=== PATIENT | male | born 1940 | race Caucasian/White ===

== ENCOUNTER 2017-08-05 13:06 | Inpatient (IN) | payer MEDICARE, BC ==
[~2017-08-05] VITALS: Ht 177.8 cm; Wt 89.7 kg
[~2017-08-05 13:06] MED LIST: ACETAMINOPHEN-1 EAC1; ALDACTONE25 MG PO; AMBEREN; ASPIRIN81 M2 PO; AZOR 5-40 MG T1 EACH PO; BENICAR40 MG; BRILINTA90 MG PO; CALCITRATE200 MG; CALCIUM; CALCIUM AMINO200 MG; CEPACOL SORE T1 EAC2 MM; CHERATUSSIN DA480 ML PO; CLARITIN10 MG PO; CLONIDINE0.1 PO; CO Q-1050 MG PO; CRESTOR20 MG PO; FISH OIL 1,0001 EAC5 PO; FLOMAX PO; FLOMAX0.4 MG PO; HYDROCODON-ACE1 EAC7 PO; HYDROCODON-ACE1 EACH; HYDROCODONE-AP1 EAC6 PO; KEFLEX500 MG PO; LEVAQUIN 500 M500 MG PO; LIPITOR40 MG; LOPRESSOR25; LUTEIN10 MG; MECLIZINE HCL12.5 MG PO; MEDROLDOSEPACK PO; MELOXICAM15 MG PO; METOPROLOL SUCC25 M1 PO; MINIPRIN81 MG PO; MOBIC15 MG; MUCINEX DM TABL1 TA1 PO; MUCINEX TA600 MG/TA2 PO; MUCINEX600 MG; MUCINEX600 MG PO; MULTIVITAMINS1 EAC7 PO; NASAL SPRAY30 M1 NS; NITROSTAT0.4 MG SL; NORCO 5-325 TA1 EACH PO; OMEGA 3-6-9 PO; PERCOCET 5-3251 EACH PO; PLAVIX 75 MG TA75 MG; PREVNAR 13 SYR0.5 ML; PROVENTIL HFA6.7 G1 INH; ROBITUSSIN15 MG/5 ML PO; SALINE NASAL SP30 ML NASAL; SINGULAIR 10 MG10 M1 PO; TAMIFLU45 MG PO; TAMSULOSIN HCL0.4 MG; ZOFRAN ODT4 MG PO; ZOFRAN ODT4 MG SUBLING; ZOFRAN4 MG PO; ZPAK PO; [UNRECOGNIZED DRUG - OTHER] PO
[2017-08-05 13:13] VITALS: BP 129/67
[2017-08-05] MEDS ORDERED: COREG25 MG PO (13:19)
[2017-08-05] MEDS ORDERED: CLONIDINE HCL0.3 M3 PO (13:20)
[2017-08-05] MEDS ORDERED: SENNA S TABLET1 EACH PO (13:21)
[2017-08-05] MEDS ORDERED: OXYCONTIN10 M1 PO (13:21)
[2017-08-05 14:16] LABS: ABSOLUTE EOSINOPHILS 0.1 thou/uL (0.0-0.7); ABSOLUTE LYMPHOCYTES 1.5 thou/uL (0.8-5.3); ABSOLUTE MONOCYTES 1.2 thou/uL (0.0-1.2); ABSOLUTE NEUTROPHILS 3.9 thou/uL (1.6-8.1); BASOPHILS 0.4 %; EOSINOPHILS 1.8 %; HEMATOCRIT 35.8 % (42.0-52.0); HEMOGLOBIN 12.6 gm/dL (14.0-18.0); LYMPHOCYTES 22.6 %; MCH 33.5 pg (26.0-34.0); MCHC 35.3 g/dL (28.0-37.0); MCV 94.8 fL (80.0-100.0); MONOCYTES 17.9 %; MPV 9.3 fl. (7.2-11.1); NUCLEATED RBCS 0 /100WBC; PLATELET COUNT* 141 thou/uL (150-400); POLYS 57.3 %; RBC 3.77 mil/uL (4.50-6.00); RDW-CV 11.8 % (10.5-14.5); WBC 6.8 thou/uL (4.0-11.0)
[2017-08-05 14:21] LABS: BE 3.3 mmol/L (-2 to +3); PCO2 38.1 mmHg (35.0-45.0); PO2 65.7 mmHg (75.0-100.0); pH 7.468 (7.340-7.450)
[2017-08-05 14:24] LABS: APTT 26.6 Seconds (25.0-31.3); INR 1.1; PROTIME 10.7 Seconds (9.20-11.50)
[2017-08-05 14:31] LABS: ANION GAP 9 mmol/L (7-16); BUN 23 mg/dL (7-18); CALCIUM 8.7 mg/dL (8.5-10.1); CHLORIDE 98 mmol/L (98-107); CO2 29 mmol/L (21-32); GLUCOSE 105 mg/dL (70-99); POTASSIUM 4.4 mmol/L (3.5-5.1); SODIUM 136 mmol/L (136-145)
[2017-08-05 14:39] LABS: ALBUMIN 3.4 g/dL (3.4-5.0); ALKALINE PHOSPHATASE 53 U/L (46-116); SGOT 47 U/L (15-37); SGPT 47 U/L (30-65); TOTAL BILIRUBIN 0.7 mg/dL (<0.1-1.0); TOTAL PROTEIN 7.1 g/dL (6.4-8.2); TROPONIN-I LEVEL <0.06 ng/mL (<0.06)
[2017-08-05 14:54] LABS: URINE BILIRUBIN NEGATIVE (Negative); URINE BLOOD TRACE (Negative); URINE CLARITY CLEAR; URINE COLOR YELLOW; URINE GLUCOSE-RANDOM NEGATIVE (Negative); URINE KETONES NEGATIVE (Negative); URINE LEUKOCYTES-REFLEX NEGATIVE (Negative); URINE NITRITE-REFLEX NEGATIVE (Negative); URINE PROTEIN NEGATIVE (Negative); URINE SPECIFIC GRAVITY <= 1.005 (1.005-1.030); URINE UROBILINOGEN 0.2 E.U./dl (0.2-1.0)
[2017-08-05 15:07] LABS: INFLUENZA A ANTIGEN None Detected (None Detect); INFLUENZA B ANTIGEN None Detected (None Detect)
[2017-08-05 16:36] VITALS: BP 152/43
[2017-08-05 17:00] VITALS: BP 110/47
--- NOTE | 2017-08-05 17:27 | EKG ---
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 : 1940 Requested By: Yue Gracia Order Number: [id number] MD: James Phipps Measurements Intervals [place] Rate: 69 P: NV: QRS: 21 QRSD: 80 T: 35 QT: 406 QTc: 435 Interpretive Statements Atrial fibrillation septal q waves noted Baseline wander in lead(s) V5 Compared to ECG 10/06/2016 19:35:04 Sinus rhythm no longer present Electronically Signed On 08-05-2017 17:27:38 [employer]GER [employer] by James Phipps [email or web address] <ELECTRONICALLY SIGNED> By: James Phipps MD, [facility] 08/05/17 1727 1319 1319 James Phipps MD, [facility] /EPI
[2017-08-05 20:49] VITALS: BP 128/64
[2017-08-06] VITALS: BP 110/55
[2017-08-06 04:00] VITALS: BP 116/54
[2017-08-06 09:00] VITALS: BP 104/66
[2017-08-06 12:36] VITALS: BP 99/40
--- NOTE | 2017-08-06 14:21 | 2DMMODE ---
[place] [address] 2 D/M-MODE ECHOCARDIOGRAM Name: PORTIA HENRIQUEZ Room: [address] IN [facility]#: [id number] Admission: 08/05/17 Attend Phys: Sonido Gonzalez Discharge: Date of : 42 Date of Service: 08/06/17 1421 Report #: [id number] THIS REPORT FOR: //name// APPROVED REPORT Study performed: 08/06/2017 10:42:09 EXAM: Comprehensive 2D, Doppler, and color-flow Echocardiogram Patient Location: In-Patient Room #: 200 Status: routine BSA: 2.10 HR: 62 bpm BP: 116/54 mmHg Rhythm: Atrial Fibrillation Other Information Study Quality: Good Indications Atrial Fibrillation 2D Dimensions LVEF(%): 71.01 (>50%) IVSd: 12.31 (7-11mm) LVOT Diam: 21.34 (18-24mm) LVDd: 42.47 mm PWd: 8.62 (7-11mm) Ascending Ao: 33.03 (22-36mm) LVDs: 25.47 (25-40mm) Aortic Root: 32.32 mm Baer's LVEF: 71.01 % Volumes Left Atrial Volume (Systole) LA ESV Index: 22.40 mL/m2 Aortic Valve AoV Peak Trung.: 1.47 m/s AO Peak Gr.: 8.68 mmHg LVOT Max P.67 mmHg AO Mean Gr.: 5.25 mmHg LVOT Mean P.28 mmHg LVOT Max V: 1.08 m/s AO V2 VTI: 28.78 cm LVOT Mean V: 0.69 m/s SERGIO (VTI): 2.81 cm2 LVOT V1 VTI: 22.62 cm Mitral Valve MV Decel. Time: 195.08 [place] [address] 2 D/M-MODE ECHOCARDIOGRAM Name: PORTIA HENRIQUEZ Room: [address] IN [facility]#: [id number] Admission: 08/05/17 Attend Phys: Sonido Gonzalez Discharge: Date of : 42 Date of Service: 08/06/17 1421 Report #: [id number] MV PHT: 56.57 ms MVA (PHT): 3.89 cm2 TDI Medial E' Trung.: 0.19 m/s Lateral E' Trung.: 0.18 m/s Pulmonary Valve PV Peak Trung.: 0.93 m/s PV Peak Gr.: 3.47 mmHg Tricuspid Valve TR Peak Gr.: 22.26 mmHg RVSP: 27.00 mmHg Left Ventricle The left ventricle is normal size. There is normal LV segmental wall motion. There is normal left ventricular wall thickness. Left ventricular systolic function is normal. LVEF is 60-65%. This study is not technically sufficient to allow evaluation of the LV diastolic function due to atrial fibrillation. Right Ventricle The right ventricle is normal size. The right ventricular systolic function is normal. Atria The left atrium size is normal. Right atrium is mildly dilated. Aortic Valve The aortic valve is normal in structure. No aortic regurgitation is present. There is no aortic valvular stenosis. Mitral Valve The mitral valve is normal in structure. Trace mitral regurgitation. No evidence of mitral valve stenosis. Tricuspid Valve The tricuspid valve is normal in structure. Trace tricuspid regurgitation. The RVSP is ____27___ mmHg. Pulmonic Valve The pulmonary valve is normal in structure. Trace pulmonic regurgitation. Great Vessels The aortic root is normal in size. IVC [place] [address] 2 D/M-MODE ECHOCARDIOGRAM Name: PORTIA HENRIQUEZ Room: [address] IN [facility]#: [id number] Admission: 08/05/17 Attend Phys: Sonido Gonzalez Discharge: Date of : 42 Date of Service: 08/06/17 1421 Report #: [id number] collapses with >50% inspiration Pericardium There is no pericardial effusion. <Conclusion> The left ventricle is normal size. There is normal left ventricular wall thickness. Left ventricular systolic function is normal. LVEF is 60-65%. Trace mitral regurgitation. Trace tricuspid regurgitation. The RVSP is ____27___ mmHg. <ELECTRONICALLY SIGNED> By: Yony Weaver MD, FACC 08/06/17 1421 142 142 Yony Weaver MD, FACC /INF
[2017-08-06 15:35] VITALS: BP 91/48
[2017-08-06 19:35] VITALS: BP 131/56
[2017-08-07 00:23] VITALS: BP 125/66
[2017-08-07 04:16] VITALS: BP 127/56
[2017-08-07 05:13] LABS: HEMATOCRIT 36.7 % (42.0-52.0); HEMOGLOBIN 12.9 gm/dL (14.0-18.0); MCH 33.2 pg (26.0-34.0); MCHC 35.1 g/dL (28.0-37.0); MCV 94.7 fL (80.0-100.0); MPV 9.3 fl. (7.2-11.1); RBC 3.88 mil/uL (4.50-6.00); WBC 7.5 thou/uL (4.0-11.0)
[2017-08-07 06:51] LABS: CALCIUM 8.6 mg/dL (8.5-10.1)
[2017-08-07 09:00] VITALS: BP 172/82
--- NOTE | 2017-08-07 11:17 | CON ---
[facility] [address] [place] [address] CONSULTATION Name: PORTIA HENRIQUEZ Room: [address] IN .R.#: [id number] Admission: 08/05/17 Attend Phys: Sonido Castaneda, Discharge: Date of : 42 Report #: [id number] THIS REPORT FOR: //name// CC: Dr. Delmy Castaneda INDICATION: New onset atrial fibrillation. HISTORY OF PRESENT ILLNESS: The patient is a very pleasant 76-year-old gentleman with history of percutaneous coronary intervention in 2005 and 2012. He has preserved left ventricular systolic function. He is not having angina. Last week and on approximately Saturday, he had some back surgery. He was discharged the following day uneventfully. Over the weekend, he complained of sweats and fatigue and shortness of breath as well as some very mild chest pressure. He was brought to the Emergency Room where he was noted to be in atrial fibrillation and admitted to the hospital. Serial enzymes have been unremarkable. CTA of the chest showed no evidence of PE. Doppler studies of the lower extremity showed no evidence of DVT. At the time of my interview, the patient is mildly fatigued, but otherwise without complaint. He is noted to be in atrial fibrillation on telemetry. He is without other complaint at this time. PAST MEDICAL HISTORY: 1. Coronary artery disease. 2. BPH. 3. Hyperlipidemia. 4. Hypertension. 5. Nephrolithiasis. 6. Lumbar radiculopathy, status post surgery. 7. History of migraines. 8. Multiple sclerosis. PAST SURGICAL HISTORY: Coronary stenting as outlined above, trigger finger release in 2006 and 2011. FAMILY HISTORY: Noncontributory. SOCIAL HISTORY: The patient is . He does not smoke. He does not drink alcohol. ALLERGIES: INFLUENZA VACCINE. MEDICATIONS: Amlodipine 5 mg/olmesartan 40 mg 1 tablet daily, aspirin 81 mg b.i.d., carvedilol 25 mg b.i.d., clonidine 0.3 mg p.r.n., Robitussin p.r.n., guaifenesin 600 mg p.r.n., multivitamin 1 tablet daily, Nitrostat p.r.n., fish oil 1000 mg daily, OxyContin 10 mg q.12 hours p.r.n., Crestor 20 mg at bedtime, [place] [address] CONSULTATION Name: PORTIA HENRIQUEZ Room: [address]#: [id number] Admission: 08/05/17 Attend Phys: Sonido Castaneda, Discharge: Date of : 42 Report #: [id number] senna-S tablets 1 tablet b.i.d., Flomax 0.4 mg daily, CoQ10 100 mg daily. REVIEW OF SYSTEMS: A 14-point review of systems as per HPI, otherwise unremarkable. PHYSICAL EXAMINATION VITAL SIGNS: Blood pressure 99/40, pulse 68, irregular. GENERAL: This is a pleasant gentleman who is in no distress. Mood and affect appropriate. HEENT: Extraocular muscles intact. Mucous membranes moist. NECK: Shows no jugular venous distention. There are no carotid bruits. CHEST: Reveals clear lung rico without wheezes, rales or rhonchi. CARDIOVASCULAR: Reveals an irregularly irregular rhythm without gallop or murmur. ABDOMEN: Reveals normal bowel sounds. The abdomen is soft, nontender. EXTREMITIES: Shows no edema. Peripheral pulses palpable. SKIN: Warm and dry. LABORATORY DATA: A 12-lead EKG shows atrial fibrillation without acute ST or T-wave abnormality. Labs are reviewed. Thyroid function studies are normal. Troponins are less than 0.04 on 2 separate occasions. IMPRESSION AND RECOMMENDATIONS: 1. New onset atrial fibrillation. We will plan to obtain echocardiogram. Start amiodarone bolus and drip. We will place on heparin drip at this time and consider long-term anticoagulant after his response to amiodarone. 2. Hypertension. The patient's blood pressure has actually been low recently. I am holding carvedilol at this time, holding John at this time. We will follow clinically and add medications back as needed. 3. Hyperlipidemia. Continue current statin agent. 4. Coronary artery disease, presently stable. He is not having angina. Enzymes are unremarkable. We will follow clinically. <ELECTRONICALLY SIGNED> By: Yony Weaver MD, FACC 08/07/17 1117 1337 [id number] Weaver MD, FACC /nt
[2017-08-07 11:29] VITALS: BP 143/66
[2017-08-07 13:57] VITALS: BP 143/66
[2017-08-07] MEDS ORDERED: NORVASC5 MG PO (16:06)
[2017-08-07] MEDS ORDERED: PACERONE 200 M200 M1 PO (16:47)
[2017-08-07] MEDS ORDERED: XARELTO20 MG PO (16:48)
[2017-08-07 17:00] VITALS: BP 143/66
== END 2017-08-07 17:24 | disposition home or self-care (01) | DRG 291 ==
LOC: M.ERS 13:06 → M.TBA-ER 15:19 → M.2W 15:19
PROVIDERS: Internal Medicine; Personal Emergency Response Attendant; ADMIT Family Medicine
DX: I50.21 Acute systolic (congestive) heart failure (principal); J96.01 Acute respiratory failure with hypoxia; J98.11 Atelectasis; I48.91 Unspecified atrial fibrillation; I25.10 Atherosclerotic heart disease of native coronary artery without angina pectoris; N40.0 Benign prostatic hyperplasia without lower urinary tract symptoms; E78.5 Hyperlipidemia, unspecified; G43.909 Migraine, unspecified, not intractable, without status migrainosus; I95.9 Hypotension, unspecified; I50.9 Heart failure, unspecified; I11.0 Hypertensive heart disease with heart failure; I65.23 Occlusion and stenosis of bilateral carotid arteries; I25.2 Old myocardial infarction; Z87.442 Personal history of urinary calculi; Z85.51 Personal history of malignant neoplasm of bladder; Z85.820 Personal history of malignant melanoma of skin; Z79.899 Other long term (current) drug therapy; Z79.82 Long term (current) use of aspirin; Z88.8 Allergy status to other drugs, medicaments and biological substances; Z98.61 Coronary angioplasty status; Z95.1 Presence of aortocoronary bypass graft; Z87.891 Personal history of nicotine dependence

== ENCOUNTER 2017-12-04 14:35 | Emergency (ER) | payer MEDICARE, BC ==
[~2017-12-04] VITALS: Ht 177.8 cm; Wt 88.5 kg
[~2017-12-04 14:35] MED LIST changes: +CLONIDINE HCL0.3 M3 PO; +COREG25 MG PO; +NORVASC5 MG PO; +OXYCONTIN10 M1 PO; +PACERONE 200 M200 M1 PO; +SENNA S TABLET1 EACH PO; +XARELTO20 MG PO
[2017-12-04] MEDS ORDERED: CARVEDILOL12.5 MG PO (14:53)
[2017-12-04] MEDS ORDERED: ASPIR 8181 MG PO (14:54)
[2017-12-04 14:57] LABS: ABSOLUTE EOSINOPHILS 0.3 thou/uL (0.0-0.7); ABSOLUTE LYMPHOCYTES 1.5 thou/uL (0.8-5.3); ABSOLUTE MONOCYTES 0.7 thou/uL (0.0-1.2); ABSOLUTE NEUTROPHILS 2.9 thou/uL (1.6-8.1); BASOPHILS 0.9 %; EOSINOPHILS 5.9 %; HEMATOCRIT 40.1 % (42.0-52.0); HEMOGLOBIN 13.8 gm/dL (14.0-18.0); LYMPHOCYTES 27.1 %; MCH 32.5 pg (26.0-34.0); MCHC 34.5 g/dL (28.0-37.0); MCV 94.3 fL (80.0-100.0); MONOCYTES 12.6 %; MPV 9.1 fl. (7.2-11.1); NUCLEATED RBCS 0 /100WBC; PLATELET COUNT* 155 thou/uL (150-400); POLYS 53.5 %; RBC 4.26 mil/uL (4.50-6.00); RDW-CV 12.8 % (10.5-14.5); WBC 5.4 thou/uL (4.0-11.0)
[2017-12-04] MEDS ORDERED: CLARITIN10 M2 PO (14:58)
[2017-12-04] MEDS ORDERED: SINGULAIR 10 MG10 M1 PO (14:58)
[2017-12-04] MEDS ORDERED: HYDROCODON-ACE1 EAC7 PO (14:59)
[2017-12-04] MEDS ORDERED: CLONIDINE0.1 PO (14:59)
[2017-12-04] MEDS ORDERED: SALINE NASAL SP30 ML NASAL (14:59)
[2017-12-04 15:16] LABS: APTT 26.4 Seconds (25.0-31.3); INR 1.2; PROTIME 11.3 Seconds (9.20-11.50)
[2017-12-04 15:18] LABS: ANION GAP 10 mmol/L (7-16); BUN 26 mg/dL (7-18); CHLORIDE 105 mmol/L (98-107); CO2 25 mmol/L (21-32); CREATININE 1.2 mg/dL (0.6-1.3); GLUCOSE 120 mg/dL (70-99); POTASSIUM 4.4 mmol/L (3.5-5.1); SODIUM 140 mmol/L (136-145)
[2017-12-04 15:37] LABS: ALBUMIN 3.9 g/dL (3.4-5.0); ALKALINE PHOSPHATASE 78 U/L (46-116); CK-MB MASS 1.4 ng/mL (<0.5-3.6); LIPASE 148 U/L (73-393); MAGNESIUM 1.9 mg/dL (1.8-2.4); NT-PRO BRAIN NAT PEPTIDE 284 pg/mL (<300); SGOT 21 U/L (15-37); SGPT 29 U/L (30-65); TOTAL BILIRUBIN 0.4 mg/dL (<0.1-1.0); TOTAL PROTEIN 7.2 g/dL (6.4-8.2); TROPONIN-I LEVEL <0.06 ng/mL (<0.06)
[2017-12-04 15:54] VITALS: BP 129/52
--- NOTE | 2017-12-06 12:28 | EKG ---
[place] [address] ELECTROCARDIOGRAM REPORT Name: PORTIA HENRIQUEZ Room: 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 : 1940 Requested By: Bob Covington Order Number: [id number] MD: James Phipps Measurements Intervals [place] Rate: 45 P: 69 IA: 214 QRS: 25 QRSD: 100 T: 54 QT: 475 QTc: 411 Interpretive Statements Sinus bradycardia septal q waves RSR' in V1 or V2, probably normal variant Compared to ECG 08/05/2017 13:19:41 Atrial fibrillation no longer present Electronically Signed On 12-06-2017 12:28:21 CDT by James Phipps [email or web address] <ELECTRONICALLY SIGNED> By: James Phipps MD, [facility] 12/06/17 1228 1439 1439 James Phipps MD, [facility] /EPI
== END 2017-12-04 15:55 | disposition home or self-care (01) ==
LOC: M.ERS 14:35
PROVIDERS: Family Medicine
DX: R00.1 Bradycardia, unspecified (principal); I10 Essential (primary) hypertension; Z88.8 Allergy status to other drugs, medicaments and biological substances; Z95.5 Presence of coronary angioplasty implant and graft; Z85.51 Personal history of malignant neoplasm of bladder

== ENCOUNTER → 2017-12-20 | Outpatient (CLI) | payer MEDICARE, BC ==
[~2017-12-20] MED LIST changes: +ASPIR 8181 MG PO; +CARVEDILOL12.5 MG PO; +CLARITIN10 M2 PO
== END ==
LOC: M.RAD 12:37
DX: M79.672 Pain in left foot (principal); I25.10 Atherosclerotic heart disease of native coronary artery without angina pectoris; I48.91 Unspecified atrial fibrillation

== ENCOUNTER → 2018-01-07 | Outpatient (CLI) | payer MEDICARE, BC ==
--- NOTE | 2018-01-07 14:36 | CARDNUC ---
[place] [address] CARDIAC NUCLEAR IMAGING REPORT Name: PORTIA HENRIQUEZ Room: [facility]#: [id number] Admission: 01/07/18 Attend Phys: Yony Weaver, Discharge: Date of : 42 Date of Service: 01/07/18 1436 Report #: [id number] THIS REPORT FOR: //name// APPROVED REPORT Imaging Protocol: Rest Tc-99m/Stress Tc-99m 1 day Study performed: 01/07/2018 08:15:00 Indication: CAD s/p CA, CAD s/p PCI Patient Location: Out-Patient Stress Tech: Corine Miranda Stress Nurse: Deneen Shin RN NM Tech:ALAN Irving Ht: 5 ft 11 in Wt: 196 lbs BSA: 2.09 m2 BMI: 27.33 Medical History Medical History: Atrial Fibrillation, CAD s/p CA, CAD s/p stent, Diabetes, HTN, Hyperlipidemia Medications: amiodarone, chandana, crestor, asa, clonidine Allergies: flue vaccine Cardiac Risk Factors: Age, DM, HTN, Hyperlipidemia Previous Cardiac Procedures: Myocardial infarction, PCI Exercise History: Sedentary Meds Held (24 hrs): - Resting Data Rest SPECT myocardial perfusion imaging was performed in supine position 30 minutes following the intravenous injection of 11.8 mCi of Tc-99m Sestamibi. Time of rest injection: 0845 Date: 01/07/2018 Time of rest imagin The images were gated to evaluate regional wall motion and calculate left ventricular ejection fraction. Administration Route: IV Administration Site: Right Hand Pharmacologic Stress Pharmacologic stress test was performed by injecting Regadenoson 0.4 mg IV push over 10-15 seconds immediately followed by the intravenous injection of 32.9 mCi of Tc-99m Sestamibi. Time of stress injection: 1045 Time of stress imagin Administration Route: [place] [address] CARDIAC NUCLEAR IMAGING REPORT Name: PORTIA HENRIQUEZ [id number] Admission: 01/07/18 Attend Phys: Yony Weaver, Discharge: Date of : 42 Date of Service: 01/07/18 1436 Report #: [id number] Administration Site: Right Hand Gated Stress SPECT was performed 40 minutes after stress injection. The images were gated to evaluate regional wall motion and calculate left ventricular ejection fraction. Prone imaging was performed. Stress Test Details Stress Test: Pharmacologic stress was paired with low level exercise. Reason for pharmacologic stress test: physical limitation. HR Max Heart Rate (APMHR): 144 bpm Resting HR: 52 bpm Target HR (85% APMHR): 122 bpm Max HR Achieved: 86 bpm % of APMHR: 59 Recovery HR: 63 bpm BP Resting BP: 147/61 mmHg Recovery BP: 140/48 mmHg ECG Resting ECG: Sinus Rhythm, normal EKG Stress ECG: Sinus Rhythm, normal EKG ST Change: None Arrhythmia: None Recovery ECG: Sinus Rhythm, normal EKG Recovery ST Change: None Recovery Arrhythmia: None Clinical Reason for Termination: Completed protocol Stress Symptoms: None Exercise duration: 4 min 0 sec Exercise capacity: 2.3 METs The patient tolerated Lexiscan infusion without symptoms. Stress ECG Conclusion The baseline 12-lead EKG show sinus rhythm without significant ST or T wave abnormalities. EKGs obtained during and post Lexiscan infusion show sinus rhythm with no significant ST or T wave changes. There were no stress-induced arrhythmias. Study Quality Study: [place] [address] CARDIAC NUCLEAR IMAGING REPORT Name: PORTIA HENRIQUEZ Room: [facility]#: [id number] Admission: 01/07/18 Attend Phys: Yony Weaver, Discharge: Date of : 42 Date of Service: 01/07/18 1436 Report #: [id number] Artifact: Mild Diaphragmatic artifact Study Data At rest, the left ventricular ejection fraction was 76%.. Post stress, the left ventricular ejection was 76%.. TID = 1.09. Perfusion Myocardial perfusion images obtained at rest and post stress in the supine position show very mild photopenia of the inferior wall that resolves completely with post stress prone imaging. Post stress prone imaging shows uniform uptake of the radioisotope throughout the myocardium without defect. Wall Motion Normal left ventricular wall motion. Nuclear Conclusion ECG Findings: negative for ischemia Clinical Findings: negative for ischemia Nuclear Findings: negative for ischemia Exercise Capacity: not assessed Left Ventricular Function: normal Risk Study: low Myocardial perfusion images show no defect to suggest infarct or ischemia. Left ventricular systolic function appears normal on gated studies. This is a low risk study. <Conclusion> The baseline 12-lead EKG show sinus rhythm without significant ST or T wave abnormalities. EKGs obtained during and post Lexiscan infusion show sinus rhythm with no significant ST or T wave changes. There were no stress-induced arrhythmias. <ELECTRONICALLY SIGNED> By: Yony Weaver MD, FACC 01/07/18 1436 1436 1436 Yony Weaver MD, FACC /INF
== END ==
LOC: M.NUC 12-17 14:49
DX: I25.10 Atherosclerotic heart disease of native coronary artery without angina pectoris (principal); I10 Essential (primary) hypertension; E11.9 Type 2 diabetes mellitus without complications; I48.91 Unspecified atrial fibrillation; E78.5 Hyperlipidemia, unspecified; Z88.7 Allergy status to serum and vaccine

== ENCOUNTER → 2018-06-04 | Outpatient (CLI) | payer MEDICARE, BC ==
[2018-06-04 10:20] LABS: ALBUMIN 3.9 g/dL (3.4-5.0); CALCIUM 8.9 mg/dL (8.5-10.1); CREATININE 1.2 mg/dL (0.6-1.3); POTASSIUM 4.3 mmol/L (3.5-5.1); TOTAL BILIRUBIN 0.5 mg/dL (<0.1-1.0)
== END ==
LOC: M.LAB 09:37
PROVIDERS: Nurse Practitioner
DX: I48.0 Paroxysmal atrial fibrillation (principal)

== ENCOUNTER → 2018-11-26 | Outpatient (CLI) | payer MEDICARE, BC | LOC: M.RAD 10:48 | DX: R05 Cough (principal); Z87.01 Personal history of pneumonia (recurrent); Z87.891 Personal history of nicotine dependence ==

== ENCOUNTER 2019-02-21 21:27 | Inpatient (IN) | payer MEDICARE, BC ==
[~2019-02-21] VITALS: Ht 177.8 cm; Wt 93.4 kg
[2019-02-21 21:33] VITALS: BP 173/65
[2019-02-21] MEDS ORDERED: AMLODIPINE BESY10 MG PO (21:38)
[2019-02-21] MEDS ORDERED: FLOVENT HFA 4444 MCG INH (21:39)
[2019-02-21] MEDS ORDERED: TESSALON PERLE100 MG PO (21:39)
[2019-02-21] MEDS ORDERED: BENICAR20 MG PO (21:39)
[2019-02-21 22:04] LABS: ABSOLUTE EOSINOPHILS 0.1 thou/uL (0.0-0.7); ABSOLUTE LYMPHOCYTES 1.4 thou/uL (0.8-5.3); ABSOLUTE MONOCYTES 1.2 thou/uL (0.0-1.2); ABSOLUTE NEUTROPHILS 7.6 thou/uL (1.6-8.1); BASOPHILS 0.3 %; EOSINOPHILS 0.7 %; HEMATOCRIT 40.3 % (42.0-52.0); HEMOGLOBIN 13.8 gm/dL (14.0-18.0); LYMPHOCYTES 13.6 %; MCH 32.6 pg (26.0-34.0); MCHC 34.2 g/dL (28.0-37.0); MCV 95.2 fL (80.0-100.0); MONOCYTES 11.3 %; MPV 8.8 fl. (7.2-11.1); NUCLEATED RBCS 0 /100WBC; PLATELET COUNT* 162 thou/uL (150-400); POLYS 74.1 %; RBC 4.23 mil/uL (4.50-6.00); RDW-CV 12.9 % (10.5-14.5); WBC 10.2 thou/uL (4.0-11.0)
[2019-02-21 22:14] LABS: ANION GAP 10 mmol/L (7-16); BUN 21 mg/dL (7-18); CHLORIDE 102 mmol/L (98-107); CO2 26 mmol/L (21-32); CREATININE 1.1 mg/dL (0.6-1.3); GLUCOSE 123 mg/dL (70-99); POTASSIUM 3.9 mmol/L (3.5-5.1); SODIUM 138 mmol/L (136-145)
[2019-02-21 22:16] LABS: PROTIME 10.7 Seconds (9.20-11.50)
[2019-02-21 22:26] LABS: ALBUMIN 4.3 g/dL (3.4-5.0); ALKALINE PHOSPHATASE 84 U/L (46-116); SGOT 20 U/L (15-37); SGPT 28 U/L (30-65); TOTAL BILIRUBIN 0.5 mg/dL (<0.1-1.0); TOTAL PROTEIN 7.7 g/dL (6.4-8.2)
[2019-02-21 22:30] LABS: BE 0.4 mmol/L (-2 to +3); PCO2 33.1 mmHg (35.0-45.0); PO2 62.5 mmHg (75.0-100.0); pH 7.468 (7.340-7.450)
[2019-02-21 22:36] LABS: URINE BILIRUBIN NEGATIVE (Negative); URINE BLOOD NEGATIVE (Negative); URINE CLARITY CLEAR; URINE COLOR YELLOW; URINE GLUCOSE-RANDOM NEGATIVE (Negative); URINE KETONES NEGATIVE (Negative); URINE LEUKOCYTES-REFLEX NEGATIVE (Negative); URINE NITRITE-REFLEX NEGATIVE (Negative); URINE PROTEIN NEGATIVE (Negative); URINE SPECIFIC GRAVITY 1.015 (1.005-1.030); URINE UROBILINOGEN 0.2 E.U./dl (0.2-1.0)
[2019-02-21 22:40] LABS: TROPONIN-I LEVEL <0.06 ng/mL (<0.06)
[2019-02-21 23:54] VITALS: BP 145/53
[2019-02-22 04:23] VITALS: BP 129/53
[2019-02-22 07:45] VITALS: BP 112/42
[2019-02-22 11:52] VITALS: BP 115/46
[2019-02-22 15:33] VITALS: BP 129/52
[2019-02-22 20:00] VITALS: BP 117/48
--- NOTE | 2019-02-22 20:22 | NUR ---
ASSUMED PT CARE AT 0730, FULL ASSESMENT DONE CHARTED. PT A/O X4, [place], DENIES PAIN, AT TIMES A PRODUCTIVE COUGH, SPUTUME SENT TO LAB. PT UP AD ADRIANNA, BP SOFT THIS AM, MONITORED CLOSELY. DISCUSSED MEDS WITH PT AND HIS . UPDATED ON PLAN OF CARE. REPORT GIVEN TO NORA MUÑOZ.
[2019-02-23 00:06] VITALS: BP 121/49
[2019-02-23 04:00] VITALS: BP 117/43
[2019-02-23 05:03] LABS: HEMATOCRIT 35.2 % (42.0-52.0); MCH 32.5 pg (26.0-34.0); MCHC 33.5 g/dL (28.0-37.0); MCV 97.2 fL (80.0-100.0); RBC 3.62 mil/uL (4.50-6.00); WBC 12.9 thou/uL (4.0-11.0)
[2019-02-23 05:11] LABS: HEMOGLOBIN 11.8 gm/dL (14.0-18.0)
[2019-02-23 05:13] LABS: CALCIUM 8.5 mg/dL (8.5-10.1); CREATININE 1.4 mg/dL (0.6-1.3); POTASSIUM 3.7 mmol/L (3.5-5.1)
--- NOTE | 2019-02-23 06:42 | NUR ---
ASSUMED CARE OF PT AFTER REPORT AT 1930. PT A&OX4. VSS. PHYSICAL ASSESSMENT COMPLETED AND CHARTED. PT ON O2 AT 2L NC. PT TRACING SR ON TELE. PT UPADLIB TO RESTROOM.PT DENIES ANY ANY PAIN OR DISCOMFORT. URINE SPECIMEN SENT TO LAB. PT ABLE TO SLEEP WELL ON BED. CALL LIGHT WITHIN REACH.
[2019-02-23 08:00] VITALS: BP 110/40
[2019-02-23 11:30] VITALS: BP 110/43
--- NOTE | 2019-02-23 11:55 | EKG ---
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: : 1940 Requested By: Yue Gracia Order Number: [id number] MD: Brian Cervantes Measurements Intervals [place] Rate: 68 P: 72 MT: 194 QRS: 35 QRSD: 95 T: 61 QT: 382 QTc: 407 Interpretive Statements Sinus rhythm Borderline low voltage, extremity leads Compared to ECG 12/04/2017 14:39:17 Sinus bradycardia no longer present Q waves no longer present Electronically Signed On 02-23-2019 11:55:13 CDT by Brian Cervantes [email or web address] <ELECTRONICALLY SIGNED> By: Brian Cervantes MD, [facility] 02/23/19 1155 2137 2137 Brian Cervantes MD, [facility] /EPI
--- NOTE | 2019-02-23 13:53 | NUR ---
SW met with pt to complete initial assessment, introduce self, and SW role. Pt alert, oriented, pleasant. Pt lives at home with ; pt has been independent with ADLs and mobility. Pt has CPAP. Pt has a cane but has not needed to use it. Pt does not anticipate any dc needs at this time. SW to continue to follow to assist with safe dc planning.
[2019-02-23 16:16] VITALS: BP 115/43
--- NOTE | 2019-02-23 17:05 | NUR ---
ASSUMED PT CARE REPORT RECEIVED FROM NURSE. PT IS AOX4, PLEASANT. ON O2 2 L NC. LUNG SOUND CLEAR EXCEPT FOR COARSE SOUND IN RIGHT LOWER QUADRANT. SR ON STRUCTURAL STEEL EQUIPMENT ERECTOR. UP AD ADRIANNA. IV FLUID INFUSING. IV ABX GIVEN. PT EXPRESSES NO COMPLAINT. CALL LIGHT AT REACH. WILL CONTINUE TO MONITOR PT.
[2019-02-23 20:00] VITALS: BP 121/58
[2019-02-23 21:06] LABS: MYCOPLASMA PNEUMONIA IgM <770 U/mL (0-769)
[2019-02-23 22:07] LABS: MYCOPLASMA PNEUMONIA IgG 1150 U/mL (0-99)
[2019-02-24 00:05] VITALS: BP 118/42
[2019-02-24 04:00] VITALS: BP 136/50
--- NOTE | 2019-02-24 04:53 | NUR ---
ASSUMED CARE OF PT AFTER REPORT AT 1930. PT A&OX4. VSS. PHYSICAL ASSESSMENT COMPLETED AND CHARTED. PT ON O2 AT 2L NC/CPAP WHEN SLEEPING. PT TRACING SR ON TELE. PT UP ADLIB TO RESTROOM. PT COMPLAINED OF HEARTBURN-MEDS GIVEN PER MAR. PT ABLE TO SLEEP WELL ON BED. CALL LIGHT WITHIN REACH.
[2019-02-24 05:17] LABS: HEMATOCRIT 34.1 % (42.0-52.0); HEMOGLOBIN 11.8 gm/dL (14.0-18.0); MCH 33.6 pg (26.0-34.0); MCHC 34.6 g/dL (28.0-37.0); MCV 97.1 fL (80.0-100.0); MPV 9.2 fl. (7.2-11.1); NUCLEATED RBCS 0 /100WBC; PLATELET COUNT* 145 thou/uL (150-400); RBC 3.51 mil/uL (4.50-6.00); RDW-CV 12.9 % (10.5-14.5); WBC 15.3 thou/uL (4.0-11.0)
[2019-02-24 05:26] LABS: CREATININE 1.2 mg/dL (0.6-1.3); MAGNESIUM 2.3 mg/dL (1.8-2.4); POTASSIUM 4.6 mmol/L (3.5-5.1)
[2019-02-24 07:39] LABS: ABSOLUTE EOSINOPHILS 0.2 thou/uL (0.0-0.7); ABSOLUTE LYMPHOCYTES 0.2 thou/uL (0.8-5.3); ABSOLUTE MONOCYTES 1.5 thou/uL (0.0-1.2); ABSOLUTE NEUTROPHILS 13.5 thou/uL (1.6-8.1); PLATELET ESTIMATE ADEQUATE
[2019-02-24 08:13] VITALS: BP 120/52
[2019-02-24] MEDS ORDERED: VENTOLIN HFA 1818 GM INH (09:43)
[2019-02-24] MEDS ORDERED: CEFDINIR300 MG PO (09:43)
[2019-02-24] MEDS ORDERED: AZITHROMYCIN 2250 MG PO (09:43)
[2019-02-24] MEDS ORDERED: PREDNISONE 10 M10 MG PO (09:43)
[2019-02-24] MEDS ORDERED: MUCINEX600 MG PO (09:43)
--- NOTE | 2019-02-24 13:04 | NUR ---
THIS RN INSTRUCTOR AGREES WITH THE ASSESSMENT OF SN JAMAL FOR 02/24/19 AT 1047.
[2019-02-24 14:16] VITALS: BP 120/52
== END 2019-02-24 15:26 | disposition home or self-care (01) | DRG 682 ==
LOC: M.ERS 21:27 → M.TBA-ER 22:54 → M.2W 22:54
PROVIDERS: Personal Emergency Response Attendant; ADMIT Internal Medicine
DX: N17.9 Acute kidney failure, unspecified (principal); J96.01 Acute respiratory failure with hypoxia; J20.8 Acute bronchitis due to other specified organisms; I10 Essential (primary) hypertension; I25.10 Atherosclerotic heart disease of native coronary artery without angina pectoris; I73.9 Peripheral vascular disease, unspecified; G47.33 Obstructive sleep apnea (adult) (pediatric); Z95.5 Presence of coronary angioplasty implant and graft; I25.2 Old myocardial infarction; Z85.820 Personal history of malignant melanoma of skin; Z85.51 Personal history of malignant neoplasm of bladder; Z88.7 Allergy status to serum and vaccine

== ENCOUNTER → 2019-08-28 | Outpatient (CLI) | payer MEDICARE, BC ==
[~2019-08-28] MED LIST changes: +AMLODIPINE BESY10 MG PO; +AZITHROMYCIN 2250 MG PO; +BENICAR20 MG PO; +CEFDINIR300 MG PO; +FLOVENT HFA 4444 MCG INH; +PREDNISONE 10 M10 MG PO; +TESSALON PERLE100 MG PO; +VENTOLIN HFA 1818 GM INH
== END ==
LOC: M.RAD 13:59
DX: R05 Cough (principal)

== ENCOUNTER 2019-10-20 22:08 | Inpatient (IN) | payer MEDICARE, BC ==
[~2019-10-20] VITALS: Ht 180.3 cm; Wt 88.9 kg
[2019-10-20 22:14] VITALS: BP 113/60
--- NOTE | 2019-10-20 22:23 | NUR ---
PATIENT CODE IN PROGRESS SEE CODE BLUE SHEET.
[2019-10-20 22:40] LABS: ABSOLUTE EOSINOPHILS 0.1 thou/uL (0.0-0.7); ABSOLUTE LYMPHOCYTES 2.4 thou/uL (0.8-5.3); ABSOLUTE NEUTROPHILS 2.8 thou/uL (1.6-8.1); BASOPHILS 0.6 %; HEMATOCRIT 39.3 % (42.0-52.0); HEMOGLOBIN 13.8 gm/dL (14.0-18.0); LYMPHOCYTES 37.6 %; MCH 32.9 pg (26.0-34.0); MCHC 35.2 g/dL (28.0-37.0); MCV 93.4 fL (80.0-100.0); MPV 9.2 fl. (7.2-11.1); NUCLEATED RBCS 0 /100WBC; PLATELET COUNT* 180 thou/uL (150-400); POLYS 43.8 %; WBC 6.3 thou/uL (4.0-11.0)
[2019-10-20 22:50] LABS: ANION GAP 9 mmol/L (7-16); BUN 18 mg/dL (7-18); CALCIUM 8.5 mg/dL (8.5-10.1); CHLORIDE 106 mmol/L (98-107); CO2 27 mmol/L (21-32); CREATININE 1.3 mg/dL (0.6-1.3); GLUCOSE 148 mg/dL (70-99); POTASSIUM 3.5 mmol/L (3.5-5.1); SODIUM 142 mmol/L (136-145)
[2019-10-20 22:52] LABS: APTT 24.2 Seconds (25.0-31.3); INR 1.1; PROTIME 11.1 Seconds (9.20-11.50)
[2019-10-20 22:54] LABS: ALKALINE PHOSPHATASE 81 U/L (46-116); CHOLESTEROL 132 mg/dL (<200); HDL CHOLESTEROL 49 mg/dL (>40); LDL CHOLESTEROL 66 mg/dL (<100); SERUM ASSESSMENT Clear; SGOT 21 U/L (15-37); SGPT 29 U/L (30-65); TC:HDL 2.7 Ratio (Not establshd); TOTAL BILIRUBIN 0.3 mg/dL (<0.1-1.0); TOTAL PROTEIN 7.1 g/dL (6.4-8.2); TRIGLYCERIDE 88 mg/dL (<150); VLDL 18 mg/dL (<40)
[2019-10-20 23:00] VITALS: BP 76/46
--- NOTE | 2019-10-20 23:00 | NUR ---
SEE STEMI DOCUMENTATION FORM
--- NOTE | 2019-10-20 23:00 | NUR ---
PATIENT TRANSFERRED TO CATHLAB
[2019-10-20 23:21] LABS: BE -9.5 mmol/L (-2 to +3); PCO2 38.7 mmHg (35.0-45.0)
[2019-10-20] MEDS ORDERED: ELIQUIS5 MG PO (23:26)
[2019-10-21] VITALS (62 sets, daily range): BP systolic 74–172; BP diastolic 39–74
[2019-10-21 00:12] LABS: BE -11.5 mmol/L (-2 to +3); PCO2 38.3 mmHg (35.0-45.0)
[2019-10-21 00:14] LABS: pH 7.222 (7.340-7.450)
[2019-10-21 00:19] LABS: pH 7.258 (7.340-7.450)
[2019-10-21 00:20] LABS: PO2 57.5 mmHg (75.0-100.0)
[2019-10-21 05:01] LABS: BE -4.5 mmol/L (-2 to +3); PCO2 43.7 mmHg (35.0-45.0); PO2 72.2 mmHg (75.0-100.0); pH 7.312 (7.340-7.450)
[2019-10-21 07:16] LABS: ABSOLUTE LYMPHOCYTES 0.9 thou/uL (0.8-5.3); ABSOLUTE MONOCYTES 2.1 thou/uL (0.0-1.2); ABSOLUTE NEUTROPHILS 10.7 thou/uL (1.6-8.1); BASOPHILS 0.1 %; HEMATOCRIT 39.2 % (42.0-52.0); HEMOGLOBIN 13.6 gm/dL (14.0-18.0); LYMPHOCYTES 6.8 %; MCH 32.2 pg (26.0-34.0); MCHC 34.7 g/dL (28.0-37.0); MCV 92.7 fL (80.0-100.0); NUCLEATED RBCS 0 /100WBC; PLATELET COUNT* 193 thou/uL (150-400); POLYS 78.1 %; RBC 4.23 mil/uL (4.50-6.00); RDW-CV 12.7 % (10.5-14.5); WBC 13.7 thou/uL (4.0-11.0)
[2019-10-21 07:19] LABS: CALCIUM 7.8 mg/dL (8.5-10.1); CREATININE 1.3 mg/dL (0.6-1.3); POTASSIUM 3.9 mmol/L (3.5-5.1)
[2019-10-21 07:23] LABS: INR 1.3; PROTIME 12.8 Seconds (9.20-11.50)
[2019-10-21 07:35] LABS: APTT 42.6 Seconds (25.0-31.3)
--- NOTE | 2019-10-21 08:32 | EKG ---
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 <ELECTRONICALLY SIGNED> By: Yony Weaver MD, [facility] 10/21/19 0830 14 14 Yony Weaver MD, [facility] /EPI
--- NOTE | 2019-10-21 09:51 | CARD ---
[address] [address] CARDIAC CATH REPORT Name: PORTIA HENRIQUEZ Room: [address] IN [facility]#: [id number] Admission: 10/21/19 Attend Phys: Spike Roper MD Discharge: Date of : 42 Report #: [id number] THIS REPORT FOR: //name// cc: Rubi Brock MD, Katrina MD ~ APPROVED REPORT Study performed: 10/20/2019 22:45:56 Patient Details Patient Status: ED Room #: The patient is a 79 year-old male Event Personnel Brian Cervantes Records Associate, Maryjane Knight RN RN, Rex Rondon RN RN, Francisco Charles Kramer, Jessie RTR Monitor Procedures Performed Art Access - R femoral artery* Left Heart Cath w/or w/o Coronaries [id number] [facility] KATE Revasc AMI Total/Sub Single CIRC [id number] AMIREVSING Indication STEMI Risk Factors Hypercholesterolemia, Hypertension Previous Procedures/Diagnoses Previous PCI Admission/Lab Medications/Medications given during procedure Angiomax bolus and infusion; 150 mg bolus of IV amiodarone; variable dose infusions of Levophed and dopamine Procedure Narrative The patient was brought emergently to the Cardiac Catheterization Laboratory and was prepped and draped in a sterile manner. The right femoral was infiltrated with 2% Lidocaine subcutaneous anesthesia. A [place] 6 FR sheath was inserted into the right femoral artery. Coronary angiography was performed using coronary diagnostic catheters. The right coronary system was accessed and visualized with a Diagnostic 6 Fr JR 4 catheter. The left coronary system was accessed and visualized with a Diagnostic 6 Fr JL 4 catheter. The left ventricle was accessed and visualized with a Diagnostic 6 [place] [address] CARDIAC CATH REPORT Name: PORTIA HENRIQUEZ Room: [address]#: [id number] Admission: 10/21/19 Attend Phys: Spike Roper MD Discharge: Date of : 42 Report #: [id number] Pigtail catheter. Left ventricular/Aortic Valve gradient assessed via catheter pullback. Hemostasis was obtained with manual pressure following sheath removal without any complications. The patient tolerated the procedure well and there were no complications associated with the procedure. There was no hematoma. Intraoperative Conscious Sedation Sedation start time: 23:50 Case end Time: 12:02 Versed 6 mg Fluoro Time: 11.8 minutes Dose: DAP 23531 cGycm2 1269 mGy Contrast Type and Amount: Visipaque 150 ml Diagnostic Cath Left Main 0% narrowing LAD 30% proximal and 40% mid vessel narrowing Circumflex 100% proximal occlusion with prominent intraluminal thrombus Right Coronary 30% mid vessel narrowing with multiple widely patent stents in this dominant vessel Hemodynamics The aortic pressure is 110/43 mmHg with a mean of 61 mmHg. The left ventricular pressure is 123/10 mmHg with a mean of mmHg. The left ventricular end diastolic pressure is 25 mmHg. There was no gradient across the aortic valve upon pullback. PCI Technique Lesion Anticoagulation was achieved with Angiomax Drip. Patient was preloaded with Angiomax IV 16 ml. Percutaneous coronary intervention was performed on the proximal circumflex artery segment. The lesion stenosis prior to intervention was 100% with GREG 0 flow. A 6FR XB 3.0 100CM Guide Catheter was used to engage the left ostium. A IG: BMW 190cm Interventional Guidewire was used to cross the lesion. BALLOON DILATION A Balloon catheter Trek RX 2.5 X 12 was inserted and inflated up to 12.00atm for 13seconds. Additional Inflation: 16.00atm for 10seconds. STENT DEPLOYMENT A drug-eluting stent Hopkins RX Stent 3.0X12mm was inserted and inflated up to 10.00atm for 12seconds. Additional Inflation: 12.00atm [place] [address] CARDIAC CATH REPORT Name: PORTIA HENRIQUEZ Room: [address] IN [facility]#: [id number] Admission: 10/21/19 Attend Phys: Spike Roper MD Discharge: Date of : 42 Report #: [id number] for 9seconds. Additional Inflation: 15.00atm for 10seconds. Final angiography reveals 0 % stenosis with GREG 3 flow. Conclusion 1. Acute inferoposterolateral ST segment elevation myocardial infarction 2. Significant coronary artery disease characterized by the following: A 100% proximal circumflex occlusion with prominent intraluminal thrombus B 30% proximal and 40% mid LAD narrowing C 30% mid right coronary narrowing with multiple widely patent stents 2. Significant elevation of left ventricular end-diastolic pressure at rest 3. Bolus of IV amiodarone in the context of recurrent slow ventricular tachycardia 4. Infusions of dopamine and levophed at variable dosages to achieve satisfactory systemic pressures 5. Successful PCI with deployment of a drug-eluting stent at the site of 100% proximal circumflex occlusion with 0% residual narrowing and GREG-3 flow to the distal vessel Recommendations Cardiac Risk Reduction Program Aggressive Medical Therapy Medications Administered Aspirin (any) Prasugrel <ELECTRONICALLY SIGNED> By: Brian Cervantes MD, [facility] 10/21/19 0949 0949 0949Brian Cervantes MD, FACC /INF
--- NOTE | 2019-10-21 10:16 | NUR ---
Nutrition: Pt admitted with STEMI, stent placed. Seen for Eladio score 10. Pt is NPO, intubated. Per RN, titrating sedation and trialing a wean today. Wt: 198#. H/o DM, HTN. BG 200s, albumin 4. Will await POC and assess for possible need for TF if he remains intubated, 10/23/19.
--- NOTE | 2019-10-21 10:23 | NUR ---
SW completed initial assessment and spoke with pt nurse Kelly for ICU interdisciplinary rounds. Pt lives at home with . SW attempted to contact pt with no answer and no personalized voicemail box. Pt has CPAP, cane. Intubated, sedated, nelson, trying PICC, restraints for tube to remain in place. SW to continue to follow to assist with safe dc planning.
--- NOTE | 2019-10-21 10:33 | EKG ---
[place] [address] ELECTROCARDIOGRAM REPORT Name: PORTIA HENRIQUEZ Room: [address] ADM IN M.R.#: [id number] Admission: 10/21/19 Attend Phys: Spike Roper, Discharge: Date of : 42 Date of Service: 10/20/192231 Report #: [id number] THIS REPORT FOR: //name// [facility] ED Test Date: 2019-10-20 Test Time: 22:32:39 Pat Name: PORTIA HENRIQUEZ Department: Room: [address] Gender: M Business Relationship Manager: Anahi : 1940 Requested By: Yue Gracia Order Number: [id number] Carmen MD: James Phipps Measurements Intervals [place] Rate: 89 P: [place]: QRS: 93 QRSD: 113 T: 29 QT: 326 QTc: 397 Interpretive Statements Paired ventricular premature complexes inferior infarct, acute (LCx) Lateral infarct, acute ST elevation, consider inferior injury ST depression V1-V3, suggest recording posterior leads Baseline wander in lead(s) III,aVL Compared to ECG 10/20/2019 22:15:42 Ventricular premature complex(es) now present Myocardial infarct finding still present ST (T wave) deviation still present Electronically Signed On 10-21-2019 10:31:55 CDT by James Phipps [email or web address] <ELECTRONICALLY SIGNED> By: James Phipps MD, [facility] 10/21/19 1031 31 31 James Phipps MD, [facility] /EPI
--- NOTE | 2019-10-21 10:35 | EKG ---
[place] [address] ELECTROCARDIOGRAM REPORT Name: PORTIA HENRIQUEZ Room: [address] ADM IN M.R.#: [id number] Admission: 10/21/19 Attend Phys: Spike Roper, Discharge: Date of : 42 Date of Service: 10/21/1912 Report #: [id number] THIS REPORT FOR: //name// [facility] Test Date: 2019-10-21 Test Time: 08:12:45 Pat Name: PORTIA HENRIQUEZ Department: Room: [address] Gender: M Infectious Waste Technician: : 1940 Requested By: James Phipps Order Number: [id number] Reading MD: James Phipps Measurements Intervals [place] Rate: 70 P: 79 W[place]: 217 QRS: 48 QRSD: 95 T: 79 QT: 333 QTc: 360 Interpretive Statements Sinus rhythm Low voltage, extremity and precordial leads Compared to ECG 10/20/2019 22:15:42 PVC's no longer seen Myocardial infarct finding no longer present ST (T wave) deviation no longer present Electronically Signed On 10-21-2019 10:33:34 CDT by James Phipps [email or web address] <ELECTRONICALLY SIGNED> By: James Phipps MD, [facility] 10/21/19 1033 1 1 James Phipps MD, [facility] /EPI
[2019-10-21 12:50] LABS: BE -2.1 mmol/L (-2 to +3); PCO2 38.7 mmHg (35.0-45.0); PO2 69.4 mmHg (75.0-100.0); pH 7.384 (7.340-7.450)
--- NOTE | 2019-10-21 12:59 | 2DMMODE ---
[place] [address] 2 D/M-MODE ECHOCARDIOGRAM Name: PORTIA HENRIQUEZ Room: [address] IN [facility]#: [id number] Admission: 10/21/19 Attend Phys: Spike Roper, Discharge: Date of : 42 Date of Service: 10/21/19 1257 Report #: [id number] THIS REPORT FOR: cc: Rubi Brock MD, Katrina MD Blick, David R. MD [facility] ~ APPROVED REPORT Study performed: 10/21/2019 09:50:58 EXAM: Comprehensive 2D, Doppler, and color-flow Echocardiogram Patient Location: In-Patient Room #: 004 Status: routine BSA: 2.10 HR: 69 bpm BP: 105/50 mmHg Rhythm: NSR Other Information Study Quality: Good Indications Acute DE 2D Dimensions IVSd: 10.08 (7-11mm) LVOT Diam: 21.09 (18-24mm) LVDd: 45.19 mm PWd: 8.16 (7-11mm) Ascending Ao: 31.95 (22-36mm) LVDs: 34.46 (25-40mm) Aortic Root: 31.57 mm Volumes Left Atrial Volume (Systole) LA ESV Index: 23.60 mL/m2 Aortic Valve AoV Peak Trung.: 1.31 m/s AO Peak Gr.: 6.88 mmHg LVOT Max P.51 mmHg AO Mean Gr.: 4.07 mmHg LVOT Mean P.75 mmHg LVOT Max V: 0.94 m/s AO V2 VTI: 21.72 cm LVOT Mean V: 0.61 m/s SERGIO (VTI): 2.52 cm2 LVOT V1 VTI: 15.67 [place] [address] 2 D/M-MODE ECHOCARDIOGRAM Name: PORTIA HENRIQUEZ Room: [address] IN ..#: [id number] Admission: 10/21/19 Attend Phys: Spike Roper, Discharge: Date of : 42 Date of Service: 10/21/19 1257 Report #: [id number] Mitral Valve E/A Ratio: 1.08 MV Decel. Time: 192.51 ms MV E Max Trung.: 0.85 m/s MV PHT: 55.83 ms MVA (PHT): 3.94 cm2 TDI E/Lateral E': 7.08 E/Medial E': 8.50 Medial E' Trung.: 0.10 m/s Lateral E' Trung.: 0.12 m/s Pulmonary Valve PV Peak Trung.: 0.94 m/s PV Peak Gr.: 3.57 mmHg Left Ventricle The left ventricle is normal size. There is normal LV segmental wall motion. There is normal left ventricular wall thickness. Left ventricular systolic function is borderline.. LVEF is 50-55%. The left ventricular diastolic function is normal. Right Ventricle The right ventricle is normal size. The right ventricular systolic function is normal. Atria The left atrium size is normal. The right atrium size is normal. Aortic Valve The aortic valve is normal in structure. No aortic regurgitation is present. There is no aortic valvular stenosis. Mitral Valve The mitral valve is normal in structure. Mild mitral regurgitation. No evidence of mitral valve stenosis. Tricuspid Valve The tricuspid valve is normal in structure. Trace tricuspid regurgitation. Pulmonic Valve Pulmonic valve is not well visualized. There is no pulmonic valvular regurgitation[place] [address] 2 D/M-MODE ECHOCARDIOGRAM Name: PORTIA HENRIQUEZ Room: [address]#: [id number] Admission: 10/21/19 Attend Phys: Spike Roper, Discharge: Date of : 42 Date of Service: 10/21/19 1257 Report #: [id number] The aortic root is normal in size. IVC is normal in size and collapses >50% with inspiration. Pericardium There is no pericardial effusion. <Conclusion> LVEF is 50-55%. Mild mitral regurgitation. <ELECTRONICALLY SIGNED> By: James Phipps MD, FACC 10/21/19 1257 1257 1257 James Phipps MD, [facility] /INF
--- NOTE | 2019-10-21 13:59 | NUR ---
RIGHT CEPHALIC VESSEL ACCESSED FOR 5 HONDURAN TRIPLE LUMEN PICC. LINE PRE-TRIMMED TO 41 CM AND ADVANCED TO THE ZERO ANABELA WITH NO RESISTANCE MET. UPPER ARM CIRCUMFERENCE ABOVE INSERTION SITE= 14", MEDICAL NECESSITY DETERMINED BY DR. CISNEROS. SHERLOCK MAGNET AND 3CG CONFIRMATION OF TIP TERMINATIONAT THE CAVOATRIAL JUNCTION APPRECIATED. GUIDEWIRE REMOVED, LINE FLUSHED AND INSERTION SITE DRESSED. REPORT GIVEN TO CLEM MUÑOZ.
--- NOTE | 2019-10-21 17:08 | NUR ---
pt progressed toward goals during shift able to obey commands opens eyes spont squeeze hands move feet titrated levo off tolerating well pressures still soft dopamine still infusing per dr rascon leave on until tomorrow titrate down from 10mcg to 5 mcg leave art and sheath in place until tomorrow spoke with family throughout day with updates along with dr kraft plan for weaning trial and extubation in the am
--- NOTE | 2019-10-21 21:44 | NUR ---
PLAN TO EXTUBATE PT. AT THIS TIME. AWAITING FOR DR. VILLEDA TO ARRIVE. PT. ALERT, ABLE TO FOLLOW COMMANDS, NODDED HEAD YES IN UNDERSTANDING. AMBU BAG READY AND IN ROOM, RT AT BEDSIDE.
[2019-10-21 22:24] LABS: BE 1.1 mmol/L (-2 to +3); PCO2 36.7 mmHg (35.0-45.0); PO2 64.2 mmHg (75.0-100.0); pH 7.448 (7.340-7.450)
--- NOTE | 2019-10-21 23:41 | NUR ---
PT. NOT EXTUBATED AT THIS TIME DUE TO O2 DESAT, DR. VILLEDA STATED SHE WILL ATTEMPT AGAIN IN THE A.M. AROUND 0600. REMAINS ON PRESSURE SUPPORT, 50% FIO2. RESTRAINTS REMAIN IN PLACE, VERSED/FENTANYL GTT'S RESTARTED FOR SEDATION. LASIX 20MG ORDERED X1 PER DR. VILLEDA. WILL CONTINUE TO MONITOR.
[2019-10-22] VITALS (36 sets, daily range): BP systolic 69–140; BP diastolic 33–63
[2019-10-22 05:04] LABS: CREATININE 1.2 mg/dL (0.6-1.3); POTASSIUM 3.8 mmol/L (3.5-5.1)
[2019-10-22 05:05] LABS: ABSOLUTE LYMPHOCYTES 1.3 thou/uL (0.8-5.3); ABSOLUTE MONOCYTES 1.5 thou/uL (0.0-1.2); ABSOLUTE NEUTROPHILS 8.4 thou/uL (1.6-8.1); BASOPHILS 0.2 %; HEMATOCRIT 35.4 % (42.0-52.0); HEMOGLOBIN 12.5 gm/dL (14.0-18.0); LYMPHOCYTES 11.2 %; MCH 32.8 pg (26.0-34.0); MCHC 35.2 g/dL (28.0-37.0); MCV 93.1 fL (80.0-100.0); MONOCYTES 13.6 %; MPV 9.2 fl. (7.2-11.1); NUCLEATED RBCS 0 /100WBC; PLATELET COUNT* 150 thou/uL (150-400); RBC 3.81 mil/uL (4.50-6.00); RDW-CV 12.9 % (10.5-14.5); WBC 11.2 thou/uL (4.0-11.0)
[2019-10-22 05:17] LABS: BE 1.2 mmol/L (-2 to +3); PCO2 37.4 mmHg (35.0-45.0); PO2 73.6 mmHg (75.0-100.0); pH 7.445 (7.340-7.450)
--- NOTE | 2019-10-22 06:54 | NUR ---
PT. EXTUBATED AT 0625 PER RT. BIPAP APPLIED AFTER EXTUBATION. PT. ALERT BUT DROWSY, WILL CONTINUE TO MONITOR.
--- NOTE | 2019-10-22 16:15 | NUR ---
INTERDISCIPLINARY ROUNDS:SPOKE WITH TONI HENDERSON. PT.WAS EXTUBATED THIS AM. IS DOING WELL. IS TO STAY IN ICU TODAY. CM ATTEMPTED TO CONTACT HIS . NO ANSWER AND NO VM SET UP. CM WILL FOLLOW.
--- NOTE | 2019-10-22 17:42 | NUR ---
PT EXTUBATED THIS AM. ON HEATED HF NC. SATS LOW TO MID 90'S. SHEATH PULLED BY CONFERENCE PLANNER NURSE. SITE C/D/I WITH NO DRAINAGE OR HEMATOMA. ROMAN TO DD. PRN TYLENOL GIVEN FOR R SHOULDER PAIN. PASSED BEDSIDE SWALLOW. ADVANCED TO CONSISTANT CARB DIET. PROGRESSING TOWARDS GOALS.
[2019-10-23] VITALS (17 sets, daily range): BP systolic 91–130; BP diastolic 29–75
[2019-10-23 02:07] LABS: GLYCOHEMOGLOBIN (HGB A1C) 6.1 % (4.8-5.6)
[2019-10-23 05:28] LABS: CREATININE 1.1 mg/dL (0.6-1.3); POTASSIUM 3.4 mmol/L (3.5-5.1)
--- NOTE | 2019-10-23 06:25 | NUR ---
PT. PROGRESSING TOWARDS GOALS. REMAINS ON HEATED HI-ISABELL O2 AT 40L AND 45%. PT. ALERT AND ORIENTED BUT VERY HARD OF HEARING, BILAT HEARING AIDS AT BEDSIDE. REMAINS SINUS RHYTHM WITH SOFT BP'S. PT. C/O RIGHT SHOULDER PAIN 7-01/24. WILL RELAY TO ONCOMING SHIFT AND SUGGEST POSSIBLE XRAY. HYDROCODONE GIVEN PER PRN ORDER. PT'S CALLED MULTIPLE TIMES THROUGHOUT SHIFT AND WAS UPDATED ON PT. STATUS. PT. TOLERATING PO THIN LIQUIDS WELL. CALL LIGHT IN REACH, WILL CONTINUE TO MONITOR.
--- NOTE | 2019-10-23 10:40 | NUR ---
Nutrition: follow up note. Was following pt for possible need for TF if he remained intubated. Pt is extubated, CHO control diet, tolerating thin liquids. Wt stable, 196#. Albumin 4. Hopeful for good meal intake. Low nutrition risk at this time.
--- NOTE | 2019-10-23 17:00 | NUR ---
pt progressed toward goals transfered to room 211 all belonging packed and sent with pt via wheelchair with nursing staff
[2019-10-23 18:03] LABS: ABSOLUTE EOSINOPHILS 0.1 thou/uL (0.0-0.7); ABSOLUTE LYMPHOCYTES 1.1 thou/uL (0.8-5.3); ABSOLUTE MONOCYTES 1.1 thou/uL (0.0-1.2); ABSOLUTE NEUTROPHILS 4.8 thou/uL (1.6-8.1); BASOPHILS 0.4 %; EOSINOPHILS 1.1 %; HEMATOCRIT 30.4 % (42.0-52.0); HEMOGLOBIN 10.8 gm/dL (14.0-18.0); LYMPHOCYTES 15.9 %; MCHC 35.4 g/dL (28.0-37.0); MCV 93.2 fL (80.0-100.0); MONOCYTES 15.3 %; MPV 9.3 fl. (7.2-11.1); NUCLEATED RBCS 0 /100WBC; PLATELET COUNT* 114 thou/uL (150-400); POLYS 67.3 %; RBC 3.26 mil/uL (4.50-6.00); RDW-CV 12.7 % (10.5-14.5); WBC 7.1 thou/uL (4.0-11.0)
[2019-10-23 18:20] LABS: ALBUMIN 3.2 g/dL (3.4-5.0); CALCIUM 8.1 mg/dL (8.5-10.1); POTASSIUM 4.2 mmol/L (3.5-5.1); TOTAL PROTEIN 6.5 g/dL (6.4-8.2)
--- NOTE | 2019-10-23 18:24 | NUR ---
PATIENT ARRIVED FROM ICU THIS EVENING PER W/C. PATIENT IS ALERT AND ORIENTED X 4. PATIENT C/O PAIN WITH COUGH. PLACED ON TELE MONITOR. TELE SHOWS NSR. O2 IS ON AT 35/% HIGH FLOW. PATIENT IS IN BED CALL LIGHT IS IN REACH.
[2019-10-24] VITALS (7 sets, daily range): BP systolic 98–130; BP diastolic 44–62
[2019-10-24 05:38] LABS: ABSOLUTE EOSINOPHILS 0.1 thou/uL (0.0-0.7); ABSOLUTE LYMPHOCYTES 1.2 thou/uL (0.8-5.3); ABSOLUTE NEUTROPHILS 4.1 thou/uL (1.6-8.1); BASOPHILS 0.2 %; EOSINOPHILS 1.1 %; HEMATOCRIT 29.8 % (42.0-52.0); HEMOGLOBIN 10.4 gm/dL (14.0-18.0); LYMPHOCYTES 18.8 %; MCH 32.5 pg (26.0-34.0); MCHC 35.1 g/dL (28.0-37.0); MCV 92.6 fL (80.0-100.0); MONOCYTES 15.2 %; MPV 9.5 fl. (7.2-11.1); NUCLEATED RBCS 0 /100WBC; PLATELET COUNT* 111 thou/uL (150-400); POLYS 64.7 %; RBC 3.21 mil/uL (4.50-6.00); RDW-CV 12.7 % (10.5-14.5); WBC 6.3 thou/uL (4.0-11.0)
[2019-10-24 06:02] LABS: CALCIUM 8.2 mg/dL (8.5-10.1); CREATININE 0.9 mg/dL (0.6-1.3); POTASSIUM 3.7 mmol/L (3.5-5.1)
--- NOTE | 2019-10-24 06:14 | NUR ---
ASSUMED PT CARE AT 1915. NURSING ASSESSMENT COMPLETED AT START OF SHIFT. PT AAOX4, GUARD IMMIGRATION IN PLACE, TRACING SR. PT CONTINUES ON HF O2. PT DESATED TO 85% O2 AT 0250. RT CALLED, O2 SAT BACK UP TO 92% AFTER O2 TITRATION. HOURLY ROUNDING COMPLETED THIS SHIFT. CALL LIGHT WITHIN REACH. NEGATIVE SEPSIS SCREENING.
[2019-10-25] VITALS: BP 119/40
[2019-10-25 04:00] VITALS: BP 127/61
--- NOTE | 2019-10-25 06:38 | NUR ---
ASSUMED PT CARE AT 1930. NURSING ASSESSMENT COMPLETED AT START OF SHIFT. PT VOICED NO CONCERNS THIS SHIFT. CONTINUES ON HFNC. SR ON PET FEEDER. HOURLY ROUNDING COMPLETED THIS SHIFT. CALL LIGHT WITHIN REACH.
[2019-10-25 08:00] VITALS: BP 147/57
[2019-10-25 13:54] LABS: ABSOLUTE EOSINOPHILS 0.2 thou/uL (0.0-0.7); ABSOLUTE LYMPHOCYTES 0.8 thou/uL (0.8-5.3); ABSOLUTE MONOCYTES 0.8 thou/uL (0.0-1.2); ABSOLUTE NEUTROPHILS 3.1 thou/uL (1.6-8.1); BASOPHILS 0.5 %; EOSINOPHILS 3.3 %; HEMATOCRIT 30.8 % (42.0-52.0); HEMOGLOBIN 10.8 gm/dL (14.0-18.0); LYMPHOCYTES 17.2 %; MCH 32.9 pg (26.0-34.0); MCV 94.1 fL (80.0-100.0); MPV 10.2 fl. (7.2-11.1); NUCLEATED RBCS 0 /100WBC; PLATELET COUNT* 132 thou/uL (150-400); RBC 3.28 mil/uL (4.50-6.00); RDW-CV 12.8 % (10.5-14.5); WBC 4.9 thou/uL (4.0-11.0)
[2019-10-25 14:03] LABS: ALBUMIN 3.2 g/dL (3.4-5.0); CALCIUM 8.2 mg/dL (8.5-10.1); CREATININE 1.1 mg/dL (0.6-1.3); TOTAL BILIRUBIN 1.5 mg/dL (<0.1-1.0); TOTAL PROTEIN 6.2 g/dL (6.4-8.2)
[2019-10-25 14:27] VITALS: BP 109/51
[2019-10-25 17:11] VITALS: BP 103/54
[2019-10-25 20:11] VITALS: BP 122/56
[2019-10-26] VITALS: BP 96/52
[2019-10-26 04:00] VITALS: BP 96/48
[2019-10-26 05:09] LABS: ABSOLUTE EOSINOPHILS 0.3 thou/uL (0.0-0.7); ABSOLUTE LYMPHOCYTES 1.6 thou/uL (0.8-5.3); ABSOLUTE NEUTROPHILS 2.6 thou/uL (1.6-8.1); BASOPHILS 0.6 %; EOSINOPHILS 4.8 %; HEMATOCRIT 30.5 % (42.0-52.0); HEMOGLOBIN 10.8 gm/dL (14.0-18.0); LYMPHOCYTES 29.5 %; MCH 33.1 pg (26.0-34.0); MCHC 35.6 g/dL (28.0-37.0); MCV 93.1 fL (80.0-100.0); MPV 9.6 fl. (7.2-11.1); NUCLEATED RBCS 0 /100WBC; PLATELET COUNT* 136 thou/uL (150-400); POLYS 47.1 %; RBC 3.28 mil/uL (4.50-6.00); RDW-CV 12.7 % (10.5-14.5); WBC 5.6 thou/uL (4.0-11.0)
[2019-10-26 05:28] LABS: ALBUMIN 3.2 g/dL (3.4-5.0); CALCIUM 8.3 mg/dL (8.5-10.1); CREATININE 1.1 mg/dL (0.6-1.3); POTASSIUM 3.4 mmol/L (3.5-5.1); TOTAL BILIRUBIN 1.3 mg/dL (<0.1-1.0); TOTAL PROTEIN 6.7 g/dL (6.4-8.2)
--- NOTE | 2019-10-26 06:00 | NUR ---
PT IS ABLE TO COMMUNICATE HIS NEEDS TO STAFF WITH MINOR DIFFICULTY; HE IS QUITE [id number] WHEN HIS HEARING AIDS ARE NOT IN. CURRENT PAIN MEDICATION REGIMEN HAS BEEN ADEQUATE FOR CONTROLLING HIS PAIN UP TO THIS TIME. RIGHT ARM PICC IS PATENT AT THIS TIME; SOME PORTS ARE "SLUGGISH".
[2019-10-26 08:00] VITALS: BP 106/41
[2019-10-26 12:08] VITALS: BP 123/57
[2019-10-26 16:00] VITALS: BP 123/48
--- NOTE | 2019-10-26 18:57 | NUR ---
ASSUMED CARE OF PT APPROX 0730. REASSESMENT COMPLETED CHARTED. MEDICATIONS GIVEN CHARTED. PT UP TO BEDSIDE CHAIR THIS SHIFT FOR MEALS. PT UP TO BATHROOM. SAFTEY PRECAUTIONS UTILIZED. PT HAS BEEN COUGHING AND DEEP BREATHING THIS SHIFT. PT O2 SAT IS 93% ON RA OF 1630. CALL LIGHT WITHIN REACH.
[2019-10-26 20:29] VITALS: BP 96/57
[2019-10-27] VITALS: BP 125/52
[2019-10-27 04:00] VITALS: BP 119/51
--- NOTE | 2019-10-27 05:52 | NUR ---
PT IS ABLE TO COMMUNICATE HIS NEEDS TO STAFF WITH MINOR DIFFICULTY; WITHOUT HIS HEARING AIDS IN HE IS VERY [id number]. CURRENT PAIN MEDICATION REGIMEN HAS BEEN ADEQUATE FOR CONTROLLING HIS PAIN UP TO THIS TIME. PT CURRENTLY IS ON ROOM AIR WHILE AWAKE AND IS WEARING HIS CPAP AT [facility] WITH A 2.0L BLEED IN; TOLERATING WELL AND GOOD O2 SAT.
[2019-10-27 06:52] LABS: CALCIUM 8.6 mg/dL (8.5-10.1); CREATININE 0.9 mg/dL (0.6-1.3); POTASSIUM 3.9 mmol/L (3.5-5.1)
[2019-10-27 08:00] VITALS: BP 128/56
[2019-10-27] MEDS ORDERED: EFFIENT10 MG PO (10:51)
[2019-10-27 10:55] VITALS: BP 130/60
--- NOTE | 2019-10-27 12:10 | NUR ---
RECEIVED REPORT FROM CRISELDA MUÑOZ. ASSUMED CARE OF PT AROUND 07. PT A&O X4, HARD OF HEARING. AM ASSESSMENT AND VITALS COMPLETED CHARTED. TARP REPAIRER IN PLACE. MEDS PER EMAR. DOCTORS ROUNDED, DISCAHRGE ORDERS RECEIVED. DISCHARGE COMPLETED CHARTED. DISCHARGE SUMMARY, SCRIPT, AND CARE NOTES GONE OVER WITH PT AND PT'S VIA TELEPHONE. BOTH COMMUNICATED UNDERSTANDING. PICC LINE REMOVED, PRESSURE HELD. TARP REPAIRER REMOVED. ALL BELONGINGS GATHERED AND SENT HOME WITH PT. PT LEFT UNIT IN WC WITH NURSING STAFF. PT LEFT HOSPITAL IN CAR WITH .
--- NOTE | 2019-10-27 12:18 | NUR ---
Pt discharged to home today, did not need home o2
[2019-10-27] MEDS ORDERED: ASA81BEC PO (13:55)
--- NOTE | 2019-10-28 17:13 | CON ---
[address] [address] CONSULTATION Name: PORTIA HENRIQUEZ Room: [address] IN .R.#: [id number] Admission: 10/21/19 Attend Phys: Spike Roper MD Discharge: 10/27/19 Date of : 42 Report #: [id number] THIS REPORT FOR: //name// cc: Rubi Brock MD, Katrina MD ~ THIS REPORT FOR: //name// CC: Spike Brock CARDIOLOGY CONSULTATION HISTORY OF PRESENT ILLNESS: The patient is a very pleasant 79-year-old male with a history of complex coronary artery disease, status post prior multivessel stenting. He presented this evening after a vigorous day with outdoor chores developing chest discomfort. He was brought by EMS to the emergency room with a reported ST-segment elevation myocardial infarction. This was confirmed in the emergency room. He subsequently developed ventricular fibrillation arrest and underwent defibrillation. He required intubation and infusion of crystalloid as well as intravenous amiodarone to maintain a stable rhythm. In this context, he was transferred emergently to the catheterization suite for cardiac catheterization. He underwent cardiac catheterization, which revealed total occlusion of the proximal portion of large circumflex. There were modest narrowings of the right coronary artery and left anterior descending with widely patent right coronary stents. I proceeded with a percutaneous coronary intervention of the circumflex, deploying one 3.0 x 12 mm [place] drug-eluting stent with 0% residual narrowing, GREG 3 flow of the distal vessel, and no residual thrombus. The patient demonstrated accelerated ventricular rhythm and slow ventricular tachycardia, was given an additional 150 mg of amiodarone, and commenced on a drip. He received Angiomax bolus and infusion during the case and was continued on pressors with tapering doses of Levophed and dopamine as the systemic pressure sal. There were problems with gas exchange. The tube was adjusted and PEEP was increased with the saturation increasing to 93%. He demonstrated metabolic acidosis and received 1 ampule of sodium bicarbonate during the procedure. With the patient demonstrating hemodynamic and rhythmic stability, he was removed from the pathology laboratory director table and transferred to the Intensive Care Unit in serious condition. PHYSICAL EXAMINATION: VITAL SIGNS: Blood pressure 97/60, heart rate of 104, and respirations controlled on the ventilator at 14. [place] [address] CONSULTATION Name: PORTIA HENRIQUEZ Room: [address]#: [id number] Admission: 10/21/19 Attend Phys: Spike Roper MD Discharge: 10/27/19 Date of : 42 Report #: [id number] CHEST: Reveals satisfactory breath sounds bilaterally. CARDIAC: Reveals normal first and second heart sounds with a question of S4 gallop. ABDOMEN: Moderately obese. EXTREMITIES: Slightly cool, but reasonably perfused. IMPRESSION: 1. Acute inferolateral posterior ST-segment elevation myocardial infarction. 2. Ventricular fibrillation in the context of #1. 3. Cardiogenic shock in the context of #1. 4. Prior coronary stenting. RECOMMENDATIONS: 1. Continued intravenous amiodarone through the night. 2. Continued hemodynamic support with tapering pressors. 3. Continue to control ventilation through the night with hopes of extubation in the morning. 4. Continue Angiomax at a reduced dose for 4 hours. 5. We will recheck a chest x-ray, ABGs, troponin I, CBC, and BMP in the morning. The aforementioned issues were discussed in detail with the patient's family. CRITICAL CARE TIME: 35 minutes from 1200 to 1235. <ELECTRONICALLY SIGNED> By: Brian Cervantes MD, FACC 10/28/19 1713 0037 [id number] Cervantes MD, FACC /nt
== END 2019-10-27 11:45 | disposition home or self-care (01) | DRG 246 ==
LOC: M.ERS 22:08 → M.CL 22:08 → M.TBA-ER 10-21 01:09 → M.ICU 10-21 01:09 → M.2W 10-23 17:34
PROVIDERS: Internal Medicine; Internal Medicine Cardiovascular Disease; Internal Medicine Pulmonary Disease; Personal Emergency Response Attendant; ADMIT Internal Medicine
PROC: B211YZZ Fluoroscopy of Multiple Coronary Arteries using Other Contrast (ICD-10-PCS; principal; 2019-10-20)
PROC: 4A023N7 Measurement of Cardiac Sampling and Pressure, Left Heart, Percutaneous Approach (ICD-10-PCS; principal; 2019-10-20)
PROC: 5A12012 Performance of Cardiac Output, Single, Manual (ICD-10-PCS; principal; 2019-10-20)
PROC: 0BH17EZ Insertion of Endotracheal Airway into Trachea, Via Natural or Artificial Opening (ICD-10-PCS; principal; 2019-10-20)
PROC: 5A1945Z Respiratory Ventilation, 24-96 Consecutive Hours (ICD-10-PCS; principal; 2019-10-20)
PROC: 027034Z Dilation of Coronary Artery, One Artery with Drug-eluting Intraluminal Device, Percutaneous Approach (ICD-10-PCS; principal; 2019-10-20)
PROC: 02HV33Z Insertion of Infusion Device into Superior Vena Cava, Percutaneous Approach (ICD-10-PCS; 2019-10-21)
PROC: 5A09357 Assistance with Respiratory Ventilation, Less than 24 Consecutive Hours, Continuous Positive Airway Pressure (ICD-10-PCS; 2019-10-25)
PROC: 5A09357 Assistance with Respiratory Ventilation, Less than 24 Consecutive Hours, Continuous Positive Airway Pressure (ICD-10-PCS; 2019-10-26)
PROC: 5A09357 Assistance with Respiratory Ventilation, Less than 24 Consecutive Hours, Continuous Positive Airway Pressure (ICD-10-PCS; 2019-10-27)
DX: I21.19 ST elevation (STEMI) myocardial infarction involving other coronary artery of inferior wall (principal); I46.9 Cardiac arrest, cause unspecified; J96.01 Acute respiratory failure with hypoxia; J18.9 Pneumonia, unspecified organism; I49.01 Ventricular fibrillation; I13.0 Hypertensive heart and chronic kidney disease with heart failure and stage 1 through stage 4 chronic kidney disease, or unspecified chronic kidney disease; G47.33 Obstructive sleep apnea (adult) (pediatric); G89.29 Other chronic pain; M54.9 Dorsalgia, unspecified; E11.51 Type 2 diabetes mellitus with diabetic peripheral angiopathy without gangrene; I95.9 Hypotension, unspecified; I25.10 Atherosclerotic heart disease of native coronary artery without angina pectoris; N20.0 Calculus of kidney; E11.65 Type 2 diabetes mellitus with hyperglycemia; T68.XXXA Hypothermia, initial encounter; E11.22 Type 2 diabetes mellitus with diabetic chronic kidney disease; N18.9 Chronic kidney disease, unspecified; I50.9 Heart failure, unspecified; E78.5 Hyperlipidemia, unspecified; I48.0 Paroxysmal atrial fibrillation; G35 Multiple sclerosis; N40.0 Benign prostatic hyperplasia without lower urinary tract symptoms; Z85.51 Personal history of malignant neoplasm of bladder; Z85.820 Personal history of malignant melanoma of skin; I25.2 Old myocardial infarction; Z88.7 Allergy status to serum and vaccine; Z79.01 Long term (current) use of anticoagulants; Z79.899 Other long term (current) drug therapy; Z95.5 Presence of coronary angioplasty implant and graft; Z99.81 Dependence on supplemental oxygen; Z87.891 Personal history of nicotine dependence; Z88.8 Allergy status to other drugs, medicaments and biological substances; Z95.1 Presence of aortocoronary bypass graft

== ENCOUNTER 2020-09-25 22:09 | Emergency (ER) | payer MEDICARE, BC ==
[~2020-09-25] VITALS: Ht 172.7 cm; Wt 88.5 kg
[~2020-09-25 22:09] MED LIST changes: +ASA81BEC PO; +EFFIENT10 MG PO; +ELIQUIS5 MG PO
[2020-09-25] MEDS ORDERED: NORVASC 2.5 MG2.5 M1 PO (22:23)
[2020-09-25] MEDS ORDERED: PROSCAR 5MG TABL5 M1 PO (22:24)
[2020-09-26] MEDS ORDERED: PROAIR HFA8.5 GM INH ×2 (00:30→00:31)
[2020-09-26] MEDS ORDERED: PREDNISONE50 MG PO (00:30)
[2020-09-26 00:46] VITALS: BP 179/86
== END 2020-09-26 00:48 | disposition home or self-care (01) ==
LOC: M.ERS 22:09
DX: J98.01 Acute bronchospasm (principal); I25.10 Atherosclerotic heart disease of native coronary artery without angina pectoris; I48.91 Unspecified atrial fibrillation; G47.33 Obstructive sleep apnea (adult) (pediatric); I10 Essential (primary) hypertension; G47.30 Sleep apnea, unspecified; Z87.442 Personal history of urinary calculi; Z95.5 Presence of coronary angioplasty implant and graft; Z88.7 Allergy status to serum and vaccine; Z88.8 Allergy status to other drugs, medicaments and biological substances; Z85.51 Personal history of malignant neoplasm of bladder

== ENCOUNTER 2020-10-02 11:02 | Emergency (ER) | payer MEDICARE, BC ==
[~2020-10-02] VITALS: Ht 177.8 cm; Wt 88.5 kg
[~2020-10-02 11:02] MED LIST changes: +NORVASC 2.5 MG2.5 M1 PO; +PREDNISONE50 MG PO; +PROAIR HFA8.5 GM INH; +PROSCAR 5MG TABL5 M1 PO
[2020-10-02 11:32] LABS: HEMOGLOBIN 15.1 gm/dL (14.0-18.0); MCHC 33.6 g/dL (28.0-37.0); MPV 8.5 fl. (7.2-11.1); RBC 4.74 mil/uL (4.50-6.00); WBC 7.4 thou/uL (4.0-11.0)
[2020-10-02 11:43] LABS: CALCIUM 9.8 mg/dL (8.5-10.1); POTASSIUM 3.9 mmol/L (3.5-5.1)
[2020-10-02 11:47] LABS: ALBUMIN 3.9 g/dL (3.4-5.0); TOTAL BILIRUBIN 0.5 mg/dL (<0.1-1.0); TOTAL PROTEIN 7.3 g/dL (6.4-8.2)
[2020-10-02 12:52] VITALS: BP 135/57
--- NOTE | 2020-10-03 14:43 | EKG ---
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: Associate Professor Of Philosophy: : 1940 Requested By: Saeid Kohli Order Number: [id number] MD: Brian Cervantes Measurements Intervals [place] Rate: 67 P: 66 [place]: 171 QRS: 14 QRSD: 72 T: 66 QT: 388 QTc: 410 Interpretive Statements Sinus rhythm Low voltage, precordial leads Compared to ECG 10/21/2019 08:12:45 No significant changes Electronically Signed On 10-03-2020 14:42:55 CDT by Brian Cervantes [email or web address] <ELECTRONICALLY SIGNED> By: Biran Cervantes MD, [facility] 10/03/20 1442 1113 1113 Brian Cervantes MD, [facility] /EPI
== END 2020-10-02 12:53 | disposition home or self-care (01) ==
LOC: M.ERS 11:02
PROVIDERS: Emergency Medicine
DX: R05 Cough (principal); R06.02 Shortness of breath; I48.91 Unspecified atrial fibrillation; I10 Essential (primary) hypertension; I25.10 Atherosclerotic heart disease of native coronary artery without angina pectoris; G47.33 Obstructive sleep apnea (adult) (pediatric); Z88.7 Allergy status to serum and vaccine; Z88.8 Allergy status to other drugs, medicaments and biological substances; Z87.442 Personal history of urinary calculi; Z85.51 Personal history of malignant neoplasm of bladder; Z95.5 Presence of coronary angioplasty implant and graft

== ENCOUNTER 2021-06-10 12:08 | Emergency (ER) | payer OTHER, MEDICARE, BC ==
[~2021-06-10] VITALS: Ht 177.8 cm; Wt 86.2 kg
[2021-06-10] MEDS ORDERED: ELIQUIS5 MG PO (12:28)
[2021-06-10] MEDS ORDERED: NATURAL LUTEIN20 MG PO (12:29)
[2021-06-10] MEDS ORDERED: FLONASE 0.05%50 MCG NARES (12:29)
[2021-06-10] MEDS ORDERED: LORATIDINE 10 M10 M1 PO (12:29)
[2021-06-10] MEDS ORDERED: MUCINEX600 MG PO (12:30)
[2021-06-10] MEDS ORDERED: TESSALON PERLE100 MG PO (12:30)
[2021-06-10 12:45] LABS: ABSOLUTE MONOCYTES 0.5 thou/uL (0.0-1.2); ABSOLUTE NEUTROPHILS 2.3 thou/uL (1.6-8.1); BASOPHILS 0.5 %; EOSINOPHILS 1.3 %; HEMATOCRIT 42.3 % (42.0-52.0); HEMOGLOBIN 14.3 gm/dL (14.0-18.0); LYMPHOCYTES 26.1 %; MCH 31.9 pg (26.0-34.0); MCHC 33.9 g/dL (28.0-37.0); MCV 94.2 fL (80.0-100.0); MONOCYTES 12.5 %; MPV 8.3 fl. (7.2-11.1); NUCLEATED RBCS 0 /100WBC; PLATELET COUNT* 155 thou/uL (150-400); POLYS 59.6 %; RBC 4.49 mil/uL (4.50-6.00); RDW-CV 12.9 % (10.5-14.5); WBC 3.8 thou/uL (4.0-11.0)
[2021-06-10 12:55] LABS: CALCIUM 8.7 mg/dL (8.5-10.1); CREATININE 0.9 mg/dL (0.6-1.3); POTASSIUM 4.1 mmol/L (3.5-5.1)
[2021-06-10 13:05] LABS: ALBUMIN 3.9 g/dL (3.4-5.0); TOTAL BILIRUBIN 0.5 mg/dL (<0.1-1.0); TOTAL PROTEIN 7.3 g/dL (6.4-8.2)
--- NOTE | 2021-06-10 14:45 | EKG ---
[place] [address] ELECTROCARDIOGRAM REPORT Name: PORTIA HENRIQUEZ Room: [facility]#: [id number] Admission: 06/10/21 Attend Phys: Discharge: Date of : 42 Date of Service: 06/10/21 1229 Report #: [id number] THIS REPORT FOR: //name// [facility] ED Test Date: 2021-06-10 Test Time: 12:29:00 Pat Name: PORTIA HENRIQUEZ Department: Room: Gender: Chalker Soles: [facility] : 1940 Requested By: Bob Covington Order Number: [id number] MD: James Phipps Measurements Intervals [place] Rate: 54 P: 49 [place]: 209 QRS: 14 QRSD: 86 T: 66 QT: 413 QTc: 392 Interpretive Statements Sinus bradycardia Low voltage, precordial leads RSR' in V1 or V2, probably normal variant Compared to ECG 10/02/2020 11:13:43 rate has slowed Electronically Signed On 06-10-2021 14:44:55 [employer] by James Phipps [email or web address] <ELECTRONICALLY SIGNED> By: James Phipps MD, FACC 06/10/21 1444 1229 1229 James Phipps MD, [facility] /EPI
[2021-06-10 15:03] VITALS: BP 122/64
== END 2021-06-10 15:04 | disposition home or self-care (01) ==
LOC: M.ERS 12:08
PROVIDERS: Family Medicine
DX: R42 Dizziness and giddiness (principal); Z20.822 Contact with and (suspected) exposure to COVID-19; I10 Essential (primary) hypertension; Z79.899 Other long term (current) drug therapy; Z88.8 Allergy status to other drugs, medicaments and biological substances